=== PATIENT | female | born 1960 | race Caucasian/White ===

== ENCOUNTER 2019-12-10 08:30 | Outpatient (RCR) | payer OTHER, SELFPAY ==
--- NOTE | 2019-11-19 15:21 | HP.OTEVAL ---
Patient's Visit Information BRANDI WASHBURN is a 59 year old F, referred to Occupational Therapy by Dr. Antoni Hedrick MD, with a diagnosis of bilateral CTS. Date of Evaluation: 11/18/19 Occupational Therapist: Priyanka Holden, JULIETAR/Rossana, CHT - Subjective This 59 year old female seen for OT eval with dx of Bilateral CTS. pt states in August she had noticed more discomfort and symptoms. pt states she has a nerve conduction study last week and it did indicate CTS. pt is using night braces. 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 pt would like to know what she can do to decrease her tingling. 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 with ADls and IADLs Goal:: pt will demo understanding of work station ergo. to decrease stress and triggers of CTS by 70% by d/c Goal:: pt will report a decrease in tingling sensation when using her hands with ADLs and IADLs by 70% or greater to increase pts ind, with ADLs and IADLs by d/c - Rehabilitation General Assessment: pt demo with a decrease in bilateral insole tack puller hand and pinch strength, tingling limiting her ind. with ADLs and IADLs. pt would benefit from skilled OT services 2x week for 3-4 weeks to return pt to PLOF. Today therapist ed. pt on CTS and POC. pt demo understanding and agree to POC Rehabilitation Potential: Good - Anticipated Interventions A/AAROM/PROM, Strengthening, Modalities, Orthoses, Joint Protection/Energy Conservation, Ergonomic Education, Fine Motor Coord/Jake, ADL Training, Home Program - Visit Plan Frequency: 1-2x /Week Duration: 4 Weeks TEXT: Thank you for the opportunity to evaluate your patient. For Medicare and Medicare HMO plans, please review the plan of care and approve it. It will need to be FAXED BACK to us at [phone] for Medicare purposes. Please let me know if there are questions or concerns regarding this plan of care. Physician Signature: Date:
--- NOTE | 2019-12-10 08:56 | HP.OTDCSUM_ITS ---
It has been my pleasure to treat BRANDI WASHBURN under orders from Dr. Antoni Hedrick MD, for the diagnosis of bilateral CTS for a total of 4 visit(s). Please see the following information for a summary of their discharge status. 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 right lateral pinch 12# left 12# no change in this strength from intial eval -. right tripod pinch 14# a increase from 10# left 10# a increase from 8#. pt has made some improvements but continues to have median nerve comprssion symptoms- Patient Goals: Regain Strength, Improve Fine Motor Skills, Use Hand/Wrist/Arm Normally Again, Sleep Better, Decrease Tingling/Numbness Goal:: pt will demo a increase in bilateral agricultural equipment sales manager strength by 15# to increase pts ind. with ADls and IADLs Goal:: pt will demo understanding of work station ergo. to decrease stress and triggers of CTS by 70% by d/c Goal:: pt will report a decrease in tingling sensation when using her hands with ADLs and IADLs by 70% or greater to increase pts ind, with ADLs and IADLs by d/c Plan: return to for further tx Discharge Comments: pt was seen in OT for conservative CTS tx. pt made some improvements but continued to have median nerve compression of bilateral hands. pt was referred back to for possible sx release. If there are questions or concerns regarding this patient's occupational therapy, please fell free to call me at [phone]. Thank you for the referral of this patient. Sincerely, Priyanka Holden, OTR/L, CHT
== END 2019-12-10 19:00 | disposition home or self-care (01) ==
LOC: OT 08:30
PROVIDERS: PCP Family Medicine; Visit Provider Family Medicine
DX: G56.03 Carpal tunnel syndrome, bilateral upper limbs (principal)
CPT/HCPCS: 97035; 97110; 97140; 97166; 97530